=== PATIENT | female | born 1970 | race Caucasian/White ===

== ENCOUNTER 2022-10-06 00:24 | Emergency (ER) | payer OTHER, SELFPAY ==
[2022-10-06 00:34] VITALS: BP 115/67; PULSE 85; RESP 16; TEMP 36.9; O2SAT 99; BMI 27.3
--- NOTE | 2022-10-06 01:41 | ED.SKABFB ---
HPI - Skin/Abscess/Foreign Bdy General Chief complaint: Skin/Abscess/Foreign Body Stated complaint: rash on back Time Seen by Provider: 10/06/22 00:44 Source: patient Mode of arrival: Ambulatory Limitations: no limitations History of Present Illness HPI narrative: 52-year-old female with history of chronic Lyme presents for evaluation of worsening rash on her lower back. She was initially seen on October 01 and started on cephalexin and valacyclovir, seen again yesterday and started on Bactrim. She states the rash is worsening and painful. No drainage is noted. She is had chills but no recorded fever. Initially her symptoms were noted on September 27 when she felt some low back discomfort and thought that she would just strained her back but her took a look and noticed erythematous skin. She presented initially as noted above on October 01 and then a doctor friend of hers evaluated her yesterday and had her start Bactrim. Review of Systems Review of Systems Narrative: GENERAL: D see HPI HEENT: Denies sinus pain, ear pain, sore throat, difficulty swallowing, dizziness. RESPIRATORY: Denies dyspnea, cough, wheezing, hemoptysis, sputum. CARDIOVASCULAR: Denies chest pain, palpitations, orthopnea, edema, GASTROINTESTINAL: Denies nausea, vomiting, abdominal pain, diarrhea, constipation, melena. : Denies dysuria, frequency, incontinence, hematuria, urinary retention. MUSCULOSKELETAL: denies weakness, joint pain, or bony pain SKIN: See HPI NEUROLOGIC: Denies weakness, headache, numbness, change in speech, confusion, seizures, incoordination. PSYCHIATRIC: No concerning psychosocial issues. 12 point review of systems is negative except for those stated above Patient History Social History Smoking Status: Never smoker Smoking Status: Never smoker alcohol intake frequency: a few times a week Substance Use Type: does not use Exam Narrative Exam Narrative: GEN: AOx3 and in mild distress EYES: Pupils are equal, round, and reactive to light and accommodation. Extraoccular muscles are intact bilaterally. There is no subconjunctival hemorrhage or exudate. CHEST: Lungs are clear to auscultation bilaterally and free of wheezes, rales, or rhonchi. Heart rate is regular rhythm, there are no murmurs, clicks, rubs, or gallops. There is no chest wall tenderness. ABD: Abdomen is soft and nontender. There is no guarding or rebound. Bowel sounds are normal in all 4 quadrants. There is no mass or organomegaly. EXT: Full painless ROM of all extremities with no loss of sensation or strength. SKIN: 8 x 5 cm erythematous, slightly tender patch in her lower back just to the left of midline, well-circumscribed, no fluctuance or induration, no drainage or ulceration. Patient has pictures of the last few days and it is improving as evidenced by less dark, and edges are beginning to fade Initial Vital Signs Initial Vital Signs: Vital Signs Temperature 98.5 F 10/06/22 00:34 Pulse Rate 85 10/06/22 00:34 Respiratory Rate 16 10/06/22 00:34 Blood Pressure 115/67 10/06/22 00:34 Pulse Oximetry 99 10/06/22 00:34 Oxygen Delivery Method Room Air 10/06/22 00:34 Course Vital Signs Vital signs: Vital Signs - 8 hr 10/06/22 00:34 Temperature 98.5 F Pulse Rate 85 Respiratory Rate 16 Blood Pressure 115/67 Pulse Oximetry 99 Oxygen Delivery Method Room Air MDM - Skin/Abscess/Foreign Bdy MDM Narrative Medical decision making narrative: [52] year old patient presents with painful rash on lower back Multiple etiologies for patient's symptoms considered including, but not limited to: [Cellulitis versus viral versus fungal versus other] Prior Charts reviewed in our EMR Primary Historian: patient Patient's history and physical exam are reassuring, no signs of sepsis, patient has pictures in her phone of the evolution of her rash and it looks notably better today over the past few days. No fluctuance or drainage to culture. Overall very reassuring, she appears to be improving, encouraged to continue her current plan. 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 Findings and discharge diagnosis discussed with patient/family followed by verbalization of understanding Return precautions discussed with patient/family whom verbalize understanding of diagnosis and plan Discharge Plan Departure Patient Disposition: Home Clinical Impression: Cellulitis Instructions: DI for Cellulitis -- Adult Activity Restrictions/Additional Instructions: *You have been diagnosed with [low back cellulitis.] *What to do: *Please continue to take your regular medications as directed, as we discussed continue the Keflex and Bactrim as well as the topical recommended by your physician [ ] New medication prescriptions sent to your pharmacy: [ ] [ ] New medication written as a paper prescription [ ] No new medications given *Please follow up with your dermatology provider in 2-3 days, call for an appointment. Let them know you were seen in the Emergency Department and that we ask that you be seen in follow up. *Return to Emergency Department if you should have any new, worsening or concerning symptoms, such as [fever greater than 101 F, shaking chills, worsening pain, persistent vomiting or other bothersome symptoms] Stand Alone Forms: Patient Portal/API
[2022-10-06 02:33] VITALS: BP 111/65; PULSE 66; RESP 16; O2SAT 98
== END 2022-10-06 02:34 | disposition home or self-care (01) ==
PROVIDERS: Emergency Provider Emergency Medicine
DX: L03.312 Cellulitis of back [any part except buttock and flank] (principal)
CPT/HCPCS: 99281